=== PATIENT | male | born 1995 | race Caucasian/White ===

== ENCOUNTER 2016-08-30 14:34 | Emergency (ER) | payer OTHER | END 2016-08-30 15:55 | disposition home or self-care (01) | LOC: ER 14:34 | DX: R11.2 Nausea with vomiting, unspecified (principal); K21.9 Gastro-esophageal reflux disease without esophagitis; M54.5 Low back pain; R50.9 Fever, unspecified | CPT/HCPCS: 87070; 87880; 99283; J8597 ==